=== PATIENT | male | born 1950 | race Caucasian/White ===

== ENCOUNTER 2024-11-26 08:41 | Outpatient (CLI) | payer MEDICARE, SELFPAY ==
--- NOTE | ~2024-11-26 | MR_ITS ---
EXAMINATION: MR pelvis wo/w con DATE: 11/26/2024 10:44 INDICATION: Prostate cancer TECHNIQUE: Magnetic resonance imaging (MRI) of the pelvis was performed without and with 18 mL Multih ance intravenous contrast. Fullfield sequences of the pelvis included axial and coronal T2-weighted S S FSE, coronal 2D FIESTA, axial T1-weighted FSPGR, axial dual-echo T1-weighted FSPGR and axial T1 marilia ghted LAVA. Small field of view sequences included axial, sagittal and coronal T2-weighted FSE cente red on the uterus and adnexa. Postcontrast sequences included a time course axial T1-weighted LAVA w ith full-field of view of the pelvis. COMPARISON: None. FINDINGS: Postoperative change of prior prostatectomy. No discrete nodular soft tissue deposit the prostatectom y bed to suggest residual/locally recurrent disease. Mild mucosal trabeculation of the bladder which could be related to prior chronic outlet obstruction. Visualized bowels are unremarkable. No free flu id in the pelvis. No pathologically enlarged pelvic or inguinal lymphadenopathy. Small bilateral hydr oceles. Mild lumbar spondylosis with fibrofatty degenerative endplate changes at L4-L5. Marrow signal is otherwise unremarkable with no pathologic marrow replacing process. IMPRESSION: 1. Status post prostatectomy reportedly for prostate cancer with no evident residual/locally recurren t or metastatic disease. Reviewed, dictated and finalized at location A. IMPRESSION: 1. Status post prostatectomy reportedly for prostate cancer with no evident res idual/locally recurrent or metastatic disease.
--- OUTSIDE RECORDS SUMMARY | 2024-11-26 09:14 | XMS_ITS | Clinical Summary ---
Author Organization [facility] Healthcare Address [address] [place] [address] Care Team Providers Care Dry Mixer Name Role Phone Rosa Garibay NP Primary Care Provider + Brock Sheriff MD Unavailable Allergies No known active allergies Medications levothyroxine (SYNTHROID) 112 mcg tablet Take 1 tablet (112 mcg total) by mouth bond runner before breakfast Active cyanocobalamin (Vitamin B-12) 1,000 mcg tabletIndication s:Prevention of Vitamin B12 Deficiency Take 1 tablet (1,000 mcg total) by mouth daily Active cholecalciferol (VITAMIN D-3) 2000 unit capsule Take 1 capsule (2,000 Units total) by mouth daily Active Lactobacillus acidophilus (PROBIOTIC ORAL) Take 1 tablet by mouth daily Active atorvastatin (LIPITOR) 10 mg tablet Take 1 tablet (10 mg total) by mouth every evening Active metFORMIN (GLUMETZA) 500 mg 24 hr tablet Take 1 tablet (500 mg total) by mouth every evening Active ascorbic acid (Vitamin C With Juany Hips) 500 mg tablet,chewable Take 1 tablet/chew tab (500 mg total) by mouth every evening Active Active Problems Problem Noted Date Diagnosed Date Type 2 diabetes mellitus 11/29/2022 Hypothyroidism 11/29/2022 Hyperlipidemia 11/29/2022 Prostate cancer 11/22/2022 Encounters Date Type Department Care Team Description 10/21/2024 1:42 PM CDT - 10/21/2024 11:59 PM CDT Hospital Encounter [facility] - Imaging [address] [place] [address] Prostate cancer (HCC) Discharge Disposition: Discharge to home or self care from Last 3 Months Surgical History Surgery Date Site/Laterality Comments TONSILECTOMY, ADENOIDECTOMY, BILATERAL MYRINGOTOMY AND TUBES COLONOSCOPY Medical History Medical History Date Comments Type 2 diabetes mellitus (HCC) 11/29/2022 Hypothyroidism 11/29/2022 Hyperlipidemia 11/29/2022 Family History Medical History Relation Name Comments Coronary artery disease Father Stroke Mother coronary artery bypass Mother pacemaker Mother Relation Name Status Comments Father Mother Social History Tobacco Use Types Packs/Day Years Used Date Smoking Tobacco: Never Smokeless Tobacco: Never Tobacco Cessation:Counseling Given: Not Answered AUDIT-C Answer Date Recorded Q1: How often do you have a drink containing alc ohol? 2-3 times a week 11/29/2022 Q2: How many drinks containi ng alcohol do you have on a typical day when you are drinking? 3 or 4 11/29/2022 Q3: How often do you have si x or more drinks on one occasion? Never 11/29/2022 Personal Safety Answer Date Recorded Have you ever been in or are you currently in a harmful physical or emotional relationship or is someone making you feel afraid or unsafe? Denies 12/21/2022 Sex and Gender Information Value Date Recorded Sex Assigned at Not on file Legal Sex Male 3:00 PM CDT Gender Identity Not on file Sexual Orientation Not on file Obstetrics History Last Filed Vital Signs Vital Sign Reading Time Taken Comments Blood Pressure 124/59 12/22/2022 12:27 PM CDT Pulse 87 12/22/2022 12:27 PM CDT Temperature 36.5 C (97.7 F) 12/22/2022 12:27 PM CDT Respiratory Rate 16 12/22/2022 12:27 PM CDT Oxygen Saturation 97% 12/22/2022 12:27 PM CDT Inhaled Oxygen Concentration - - Weight 83.7 kg (184 lb 8.4 oz) 12/21/2022 6:21 A M CDT Height 182.9 cm (6') 12/21/2022 6:21 AM CDT Body Mass Index 25.03 12/21/2022 6:21 AM CDT Plan of Treatment Health Maintenance Due Date Last Done Comments Albumin Creatinine Ratio, Urine 1950 Colon Cancer Screening-Colonoscopy 1950 Depression Screening 1950 Hepatitis C Screening 1950 Dilated Eye Exam 1952 Foot Exam 1952 Lipid Panel 1950 Abdominal Aortic Aneurysm (A AA) Screen 2017 Well Visit 65+ 2017 Zoster Vaccine (2 of 3) 07/30/2019 06/04/20 19, 03/18/2019, 07/25/2012, Additional history exists Hemoglobin A1C 06/01/2023 11/29/2022 Fall Risk Assessment 12/23/2023 12/22/2022 eGFR 12/23/2023 12/22/2022, 11/29/2022 Covid-19 Vaccine (2023- 5 season) 2024 05/30/2022, 06/07/2021, 10/10/2020, Additional history exists Influenza Vaccine (#1) 2024 , 05/15/2021, 05/15/2021, Additional history exists DTaP/Tdap/Td Vaccine (2 - Td or Tdap) 10/15/2028 10/15/2018, 06/13/2003 Hepatitis B Screening Completed 12/17/2009 , 08/10/2009, 06/15/2009 Pneumococcal vaccine 65+ Completed 12/02/2019, 09/29 Medical Devices Implanted Type Area Sales Force Administrator Device Identifier Shelf Expiration Date Model / Serial / Lot [employer] Weck Hem-O-Baljit Ligate Nonabsorbable Cartridge Large Chevron Heart Latex Free [id number] - [id number] Implanted:Qty: 1 on 12/21/2022 by Brock Sheriff MD at [facility] [employer] [id number] / / [employer] Weck Hem-O-Baljit Ligate Nonabsorbable Cartridge Large Chevron Heart Latex Free [id number] - [id number] Implanted:Qty: 1 on 12/21/2022 by Brock Sheriff MD at [facility] [employer] [id number] / / Procedures Procedure Name Priority Date/Time Associated Diagnosis Comments PET/CT PROSTATE CANCER PSMA SKULL TO THIGH Schedule Routine, Read Routine (OP Routine) 10/21/2024 3:28 PM CDT Prostate cancer (HCC) EGFR Routine 12/22/2022 5:16 AM CDT HEMOGLOBIN A1C Routine 11/29/2022 10:15 AM CDT Pre-op evaluation from Last 3 Months or Most Recently Relevant to Health Maintenance Results * PET/CT Prostate Cancer PSMA Skull to Thigh (10/21/2024 3:28 PM CDT) Anatomical Region Laterality Modality N/A Positron Emissio n Tomography (PET) 10/21/2024 5:00 PM CDT Impressions 10/21/2024 6:25 PM CDT 1. No PSMA PET evidence of locoregional molly or distant metastatic disease. 2. Essentially unchanged multiple non tracer avid bilateral pulmonary nodules and multiple mildly prominent mediastinal and bilateral hilar lymph nodes, likely not related to prostate cancer and likely related to granulomatous disease. Dictated by: Kandice Dunn MD The radiology attending physician has personally reviewed this study, and had reviewed and/or edited this written report and agrees with it. Electronically signed by: DO Vernon Koenig 10/21/2024 6:25 PM CDT EXAMINATION: PSMA-PET/CT DATE OF STUDY: 10/21/2024 SCANNER: [facility] RADIOPHARMACEUTICAL: 9.3 mCi F-18 Flotufolastat (POSLUMA) i.v. Injection site: Left antecubital HISTORY: 74-year-old man with prostate cancer diagnosed in September 2022. [place] score 4+3 = 7. He is post radical prostatectomy and bilateral lymph node dissection in November 2022. The most recently obtained PSA is 0.24 ng/mL. The study is requested for restaging of documented biochemically recurrent prostate cancer. Subsequent treatment strategy. TECHNIQUE: After intravenous administration of tracer, noncontrast CT images were obtained for attenuation correction and for fusion with emission PET images to allow for anatomical localization of PET findings. Emission PET images were then obtained. The study was interpreted on the 1-800-DENTIST workstation. The total scanned area was mid thighs to skull vertex. Images of the body were obtained starting 62 minutes after injection of tracer. REFERENCE TISSUE MAXIMUM SUVs: Parotid gland 13.6; Liver 8.0; Blood pool 2.5 Focal PSMA tracer uptake is graded as follows: * Faint: above background to blood pool * Mild: above blood pool to liver * Moderate: above liver to salivary glands * Intense: similar to or above salivary glands COMPARISON: PSMA PET CT on 11/11/2022 CT chest on 05/11/2023 FINDINGS: Prostate/Prostate bed: Prostatectomy. No abnormal tracer uptake seen. Regional lymph nodes: No abnormal tracer uptake seen. Extra-pelvic lymph nodes: No abnormal tracer uptake seen.Multiple mildly prominent mediastinal (prevascular, upper and lower right paratracheal, subcarinal) and bilateral hilar lymph nodes without significant tracer activity. They are stable in size since prior exam. There is partial calcification in some of them such as right paratracheal, subcarinal and bilateral hilar lymph nodes. Findings are compatible with granulomatous disease. The most tracer avid lymph node is a 1.0 cm right prevascular lymph node, image #174, measures 1.0 cm in short axis with mild tracer uptake, without significant change in size and avidity since prior exam. Bone: No abnormal tracer uptake seen. Visceral: No abnormal tracer uptake seen. Additional CT findings: Coronary artery calcifications. Sequela of old granulomatous disease with multiple mediastinal, hilar, pulmonary and splenic calcified granulomas. Unchanged hepatic cysts. Degenerative changes of the spine. Atherosclerotic calcification of the abdominal aorta and iliac arteries. There are essentially unchanged multiple non-tracer avid scattered bilateral pulmonary nodules. For reference, unchanged 7 mm left lower lobe non tracer avid pulmonary nodule, image #223. Non tracer avid left megha fissural sub-5 mm pulmonary nodule, image #204, 4 mm right lower lobe pulmonary nodule, image #212 and 5 mm right lower lobe pulmonary nodule, image #207. Procedure Note Brock Fung, - 10/21/2024 EXAMINATION: PSMA-PET/CT DATE OF STUDY: 10/21/2024 SCANNER: [facility] RADIOPHARMACEUTICAL: 9.3 mCi F-18 Flotufolastat (POSLUMA) i.v. Injection site: Left antecubital HISTORY: 74-year-old man with prostate cancer diagnosed in September 2022. Eric score 4+3 = 7. He is post radical prostatectomy and bilateral lymph node dissection in November 2022. The most recently obtained PSA is 0.24 ng/mL. The study is requested for restaging of documented biochemically recurrent prostate cancer. Subsequent treatment strategy. TECHNIQUE: After intravenous administration of tracer, noncontrast CT images were obtained for attenuation correction and for fusion with emission PET images to allow for anatomical localization of PET findings. Emission PET images were then obtained. The study was interpreted on the 1-800-DENTIST workstation. The total scanned area was mid thighs to skull vertex. Images of the body were obtained starting 62 minutes after injection of tracer. REFERENCE TISSUE MAXIMUM SUVs: Parotid gland 13.6; Liver 8.0; Blood pool 2.5 Focal PSMA tracer uptake is graded as follows: * Faint: above background to blood pool * Mild: above blood pool to liver * Moderate: above liver to salivary glands * Intense: similar to or above salivary glands COMPARISON: PSMA PET CT on 11/11/2022 CT chest on 05/11/2023 FINDINGS: Prostate/Prostate bed: Prostatectomy. No abnormal tracer uptake seen. Regional lymph nodes: No abnormal tracer uptake seen. Extra-pelvic lymph nodes: No abnormal tracer uptake seen.Multiple mildly prominent mediastinal (prevascular, upper and lower right paratracheal, subcarinal) and bilateral hilar lymph nodes without significant tracer activity. They are stable in size since prior exam. There is partial calcification in some of them such as right paratracheal, subcarinal and bilateral hilar lymph nodes. Findings are compatible with granulomatous disease. The most tracer avid lymph node is a 1.0 cm right prevascular lymph node, image #174, measures 1.0 cm in short axis with mild tracer uptake, without significant change in size and avidity since prior exam. Bone: No abnormal tracer uptake seen. Visceral: No abnormal tracer uptake seen. Additional CT findings: Coronary artery calcifications. Sequela of old granulomatous disease with multiple mediastinal, hilar, pulmonary and splenic calcified granulomas. Unchanged hepatic cysts. Degenerative changes of the spine. Atherosclerotic calcification of the abdominal aorta and iliac arteries. There are essentially unchanged multiple non-tracer avid scattered bilateral pulmonary nodules. For reference, unchanged 7 mm left lower lobe non tracer avid pulmonary nodule, image #223. Non tracer avid left megha fissural sub-5 mm pulmonary nodule, image #204, 4 mm right lower lobe pulmonary nodule, image #212 and 5 mm right lower lobe pulmonary nodule, image #207. IMPRESSION: 1. No PSMA PET evidence of locoregional molly or distant metastatic disease. 2. Essentially unchanged multiple non tracer avid bilateral pulmonary nodules and multiple mildly prominent mediastinal and bilateral hilar lymph nodes, likely not related to prostate cancer and likely related to granulomatous disease. Dictated by: Kandice Dunn MD The radiology attending physician has personally reviewed this study, and had reviewed and/or edited this written report and agrees with it. Electronically signed by: Brock Fung DO us Brock Sheriff MD IMG PET PROCEDURES Final Result * eGFR (12/22/2022 5:16 AM CDT) eGFR 86 mL/min/1. 73 m2 [facility] Comment: Interpretive Data Reference Interval Normal >/= 90 mL/min/1.73m2 Mildly decreased* 60 - 89 mL/min/1.73m2 Mildly to moderately decreased 45 - 59 mL/min/1.73m2 Moderately to severely decreased 30 - 44 mL/min/1.73m2 Severely decreased 15 - 29 mL/min/1.73m2 Kidney Failure < 15 mL/min/1.73m2 *Relative to young adult level Estimated glomerular filtration rate is determined by the 2020 CKD-EPI equation recommended by the National Kidney Foundation (A Unifying Approach to GFR Estimation: Recommendations of the NKF-ASK Task Force on Reassessing the Inclusion of Race in Diagnosing Kidney Disease, JASN 2020). The CKD-EPI equation should not be used for patients with unstable renal function and has not been validated in children and those over 70. Current interpretive data was last reviewed 2021. Blood 12/22/2022 5:16 AM CDT 12/22/2022 5:28 AM CDT us Brock Sheriff MD LAB BLOOD ORDERABLES Fin al Result [facility] [address] [place] [place] [address] * (ABNORMAL) Hemoglobin A1c (11/29/2022 10:15 AM CDT) Hgb A1C 5.8(H) 4.0 - 5.6 % [facility] Estimated Average Glucose 120 mg/dL [facility] Comment: The ADA recommends reporting an estimated Average Glucose (eAG) with all Hemoglobin A1c results using the equation derived from a study of 507 normal and diabetic adults. Minority populations were underrepresented and children were not included. (Diabetes Care 31:0197-6186, 2008). The eAG is not equivalent to a fasting glucose. Blood 11/29/2022 10:1 5 AM CDT 11/29/2022 10:15 AM CDT Malinda Edward NP LAB BLOOD ORDERABLES Final Result [facility] [address] Department [place] [address] from Last 3 Months or Most Recently Relevant to Health Maintenance [place] [address] MEDICARE [facility] [place] [address] [facility] Advance Directives For more information, please contact: [phone] * Full Code (Latest Code Status on File) Date Activated Date Inactivated Comments 12/21/2022 2:10 PM 12/22/2022 6:28 PM Care Teams Dry Mixer Relationship Specialty Start Date End Date Rosa Garibay NP [address] [place] [id number] PCP - General Nurse Practitioner 12/15/22 [place] [address] [place] [address] Consulting Physician General Surgery 12/22/22
--- OUTSIDE RECORDS SUMMARY | 2024-11-26 09:14 | XMS_ITS | Referral Summary ---
Author Organization [facility] Healthcare Address [address] [place] [address] Care Team Providers Care Prestressed Concrete Laborer Name Role Phone Rosa Garibay NP Primary Care Provider + Brock Sheriff MD Unavailable [phone] Encounters Date Type Department Care Team Description 10/21/2024 1:42 PM CDT - 10/21/2024 11:59 PM CDT Hospital Encounter [facility] - Imaging [address] [place] [address] Prostate cancer (HCC) Discharge Disposition: Discharge to home or self care from Last 3 Months Allergies No known active allergies Medications levothyroxine (SYNTHROID) 112 mcg tablet Take 1 tablet (112 mcg total) by mouth home health care worker before breakfast Active cyanocobalamin (Vitamin B-12) 1,000 [...] Hypothyroidism 11/29/2022 Hyperlipidemia 11/29/2022 Prostate cancer 11/22/2022 Social History Tobacco Use Types Packs/Day Years [...] on file Sexual Orientation Not on file Last Filed Vital Signs Vital Sign Reading [...] 12/21/2022 6:21 AM CDT Plan of Treatment Not on file Medical Devices Implanted Type Area 911 Telecommunicator Device Identifier Shelf Expiration Date Model / Serial / Lot [employer] We[employer] Hem-O-Baljit Ligate Nonabsorbable Cartridge Large Chevron Heart Latex Free [id number] - [id number] Implanted:Qty: 1 on 12/21/2022 by Brock Sheriff MD at [facility] [employer] [id number] / / [employer] We[employer] Hem-O-Baljit Ligate Nonabsorbable Cartridge Large [employer]ron Heart Latex Free [id number] - [id number] Implanted:Qty: 1 on 12/21/2022 by Brock Sheriff MD at [facility] [employer] [id number] / / Procedures Procedure Name Priority Date/Time [...] EXAMINATION: PSMA-PET/CT DATE OF STUDY: 10/21/2024 SCANNER: [facility] RADIOPHARMACEUTICAL: 9.3 mCi F-18 Flotufolastat (POSLUMA) i.v. [...] obtained. The study was interpreted on the Now In [employer] workstation. The total scanned area was mid [...] nodule, image #207. Procedure Note Brock Fung, DO - 10/21/2024 EXAMINATION: PSMA-PET/CT DATE OF STUDY: 10/21/2024 SCANNER: [facility] RADIOPHARMACEUTICAL: 9.3 mCi F-18 Flotufolastat (POSLUMA) i.v. Injection site: Left antecubital HISTORY: 74-year-old man with prostate cancer diagnosed in September 2022. Troy score 4+3 = 7. He is post [...] obtained. The study was interpreted on the [employer] workstation. The total scanned area was mid [...] CDT) eGFR 86 mL/min/1. 73 m2 [facility] Comment: Interpretive Data Reference Interval [...] MD LAB BLOOD ORDERABLES Fin al Result Performing Organization Address [facility] Co de Phone Number [facility] [address] Department [place] [address] * (ABNORMAL) Hemoglobin A1c (11/29/2022 10:15 AM CDT) Hgb A1C 5.8(H) 4.0 - 5.6 % [facility] Estimated Average Glucose 120 mg/dL [facility] Comment: The ADA recommends reporting an estimated Average Glucose (eAG) with all Hemoglobin A1c results using the equation derived from a study of 507 normal and diabetic adults. Minority populations were underrepresented and children were not included. (Diabetes Care 31:4307-6216, 2008). The eAG is not equivalent to a fasting glucose. Blood 11/29/2022 10:1 5 AM CDT 11/29/2022 10:15 AM CDT Malinda Edward NP LAB BLOOD ORDERABLES Final Result Performing Organization Address [facility] Co de Phone Number [facility] [address] Department [place] [address] from Last 3 Months or Most Recently Relevant to Health Maintenance [place] [place] [address] MEDICARE [facility] FINANCIAL MEDICARE [employer] Member Subscriber Plan / Payer ( fective 2022-Present) Name:Jeffy Esquivel Relation to Subscriber:Self Name:Jeffy Esquivel Payer ID:[id number] Group ID:Not on file Type:COMMERCIAL Address: [place] [id number] Advance Directives For more information, please contact: [phone] * Full Code (Latest Code Status on File) Date Activated Date Inactivated Comments 12/21/2022 2:10 PM 12/22/2022 6:28 PM Care Teams Prestressed Concrete Laborer Relationship Specialty Start Date End Date Rosa Garibay NP [address] [place] [address] PCP - General Nurse Practitioner 12/15/22 [place] [address] [address] Consulting Physician General Surgery 12/22/22
--- OUTSIDE RECORDS SUMMARY | 2024-11-26 09:14 | XMS_ITS | Clinical Summary ---
Author Organization [facility] Address Replaced by [facility] [place] [address] Care Team Providers Care Manager Aerospace Name Role Phone Unavailable Primary Care Provider Unavailabl e Social History Tobacco Use Types Packs/Day Years Used Date Smoking Tobacco: Never Assessed Sex and Gender Information Value Date Recorded Sex Assigned at Not on file Legal Sex Male 6:16 PM CDT Gender Identity Not on file Sexual Orientation Not on file Plan of Treatment Health Maintenance Due Date Last Done Comments Colorectal Cancer Screening Colonoscopy (10 Years) 1952 Hepatitis C 1970 DTaP, Tdap and Td Vaccines ( 1 - Tdap) 1971 Pneumococcal Vaccine: 50+ Ye ars (1 of 1 - PCV) 2002 Zoster Vaccines (1 of 2) 2002 COVID-19 Vaccine ( - 2023-2 5 season) 2024 RSV Immunization or 60+ Years (1 - 1-dose 75+ series) 2027 Meningococcal B Vaccine Aged Out No l onger eligible based on patient's age to complete this topic Meningococcal Vaccine Aged Out No tal madeline eligible based on patient's age to complete this topic RSV Immunizations Under 20 Months Aged Out No longer eligible based on patient's age to complete this topic
--- OUTSIDE RECORDS SUMMARY | 2024-11-26 09:14 | XMS_ITS | Clinical Summary ---
Author Organization [facility] [email or web address] Address [address] [place] [address] Care Team Providers Care Imaging Manager Name Role Phone Duane Singh MD Primary Care Provider Unavaila ble Source Comments [facility],non-owned Affiliates and Associated Physician Practices is amultiple site organization consisting of ambulatory clinics and hospital sitesin [place], [place], [place] and [place]. This disclosure is being madepursuant to the Care Everywhere program and may not contain all information available regarding this patient. Last updated 18.[facility] [email or web address] Immunizations Immunization Administration Dates Next Due FLU VACCINE QUAD IIV4 PF ID 05/08/2016 Social History Tobacco Use Types Packs/Day Years Used Date Smoking Tobacco: Never Assessed Sex and Gender Information Value Date Recorded Sex Assigned at Not on file Legal Sex Male 1:51 PM CDT Gender Identity Not on file Sexual Orientation Not on file Plan of Treatment Health Maintenance Due Date Last Done Comments COLOGUARD (AGES 45-75) - COL ON CA SCREENING 1952 COLON MONITORING 1952 COLONOSCOPY - COLON CA SCREENING 1952 CT COLONOGRAPHY - COLON CA SCREENING 1952 Colorectal Cancer Screening 1952 FIT - COLON CA SCREENING 1952 FLEX SIG - COLON CA SCREENING 1952 LIPID TESTING 1952 HEPATITIS C SCREENING 04/04/1970 DTAP/TDAP/TD VACCINES (1 - Tdap) 1971 PNEUMOCOCCAL VACCINE 50+ (1 of 1 - PCV) 2002 ZOSTER VACCINE (1 of 2) 2002 COVID-19 VACCINE (2023-2 5 season) 2024 DEPRESSION SCREENING 07/31/2024 INFLUENZA VACCINE (Season Ended) 2025 05/08/20 16 Respiratory Syncytial Virus (RSV) Vaccine Pt: or over 60 yrs (1 - 1-dose 75+ series) 2027 HEPATITIS B VACCINE Aged Out No longe r eligible based on patient's age to complete this topic HIB VACCINE Aged Out No longer eligi ble based on patient's age to complete this topic HPV VACCINE Aged Out No longer eligi ble based on patient's age to complete this topic MENINGOCOCCAL (Group B) VACC INE SHARED DECISION-MAKING Aged Out No longer eligibl e based on patient's age to complete this topic MENINGOCOCCAL GROUPS A/C/Y/W VACCINE Aged Out No longer eligible b ased on patient's age to complete this topic Insurance [address] Care Teams Imaging Manager Relationship Specialty Start Date End Date Duane Singh MD PCP - General Family Medicine 05/08/16
== END 2024-11-26 08:42 | disposition home or self-care (01) ==
LOC: ANHIMG 08:46
PROVIDERS: Visit Provider Radiology Radiation Oncology
DX: C61 Malignant neoplasm of prostate (principal); Z90.79 Acquired absence of other genital organ(s)
CPT/HCPCS: 72197; A9577